=== PATIENT | female | born 1945 | race Caucasian/White ===

== ENCOUNTER 2021-10-25 13:09 | Outpatient (CLI) | payer MEDICARE | END 2021-10-25 13:10 | disposition home or self-care (01) | LOC: CSHMAMMO 13:09 | PROVIDERS: ATTEND Family Medicine | DX: Z13.820 Encounter for screening for osteoporosis (principal); Z78.0 Asymptomatic menopausal state; M85.851 Other specified disorders of bone density and structure, right thigh; M85.852 Other specified disorders of bone density and structure, left thigh | CPT/HCPCS: 77080 ==

== ENCOUNTER 2022-05-31 10:39 | Outpatient (CLI) | payer MEDICARE | END 2022-05-31 10:40 | disposition home or self-care (01) | LOC: CSHMAMMO 10:39 | PROVIDERS: ATTEND Family Medicine | DX: Z12.31 Encounter for screening mammogram for malignant neoplasm of breast (principal) | CPT/HCPCS: 77063; 77067 ==

== ENCOUNTER 2023-08-15 12:34 | Outpatient (CLI) | payer MEDICARE | END 2023-08-15 12:35 | disposition home or self-care (01) | LOC: CSHMAMMO 12:34 | PROVIDERS: ATTEND Family Medicine | DX: Z12.31 Encounter for screening mammogram for malignant neoplasm of breast (principal) | CPT/HCPCS: 77063; 77067 ==